=== PATIENT | female | born 1955 | race Hispanic/Latino ===

== ENCOUNTER → 2018-05-25 | Outpatient (CLI) | payer OTHER ==
[~2018-05-25] VITALS: Ht 157.5 cm; Wt 77.1 kg
[~2018-05-25] MED LIST: REGADENOSON 0.4 MG/5 ML PF SYG IVP SCH
== END ==
LOC: SHCH 08:27
PROVIDERS: ATTEND Internal Medicine Cardiovascular Disease
DX: I44.7 Left bundle-branch block, unspecified (principal)
CPT/HCPCS: 78452; 93017; 96374; A9500 ×2; J2785

== ENCOUNTER → 2018-11-12 | Outpatient (CLI) | payer MEDICARE | END | disposition home or self-care (01) | LOC: OIH 11-09 14:50 | PROVIDERS: ATTEND Internal Medicine | DX: M17.0 Bilateral primary osteoarthritis of knee (principal) | CPT/HCPCS: 73560 ==

== ENCOUNTER → 2020-05-08 | Outpatient (CLI) | payer MEDICARE, OTHER | END | disposition home or self-care (01) | LOC: OIH 15:17 | PROVIDERS: ATTEND Internal Medicine | DX: M17.11 Unilateral primary osteoarthritis, right knee (principal); M25.761 Osteophyte, right knee; M22.3X1 Other derangements of patella, right knee | CPT/HCPCS: 73560 ==

== ENCOUNTER → 2020-12-04 | Outpatient (CLI) | payer OTHER | END | disposition home or self-care (01) | LOC: RAH 15:29 | PROVIDERS: ATTEND Internal Medicine | DX: I10 Essential (primary) hypertension (principal) | CPT/HCPCS: 71046 ==

== ENCOUNTER → 2020-12-31 | Outpatient (CLI) | payer OTHER | END | disposition home or self-care (01) | LOC: RAH 10:39 | PROVIDERS: ATTEND Internal Medicine | DX: I70.201 Unspecified atherosclerosis of native arteries of extremities, right leg (principal); M79.89 Other specified soft tissue disorders; M25.561 Pain in right knee; Z96.659 Presence of unspecified artificial knee joint | CPT/HCPCS: 73560 ==

== ENCOUNTER 2022-10-31 18:41 | Emergency (ER) | payer OTHER ==
[~2022-10-31] VITALS: Ht 157.5 cm; Wt 83.0 kg
[2022-10-31 19:26] LABS: BASOPHILS % (AUTO) 0.7 % (0.0-5.0); EOSINOPHILS % (AUTO) 2.7 % (0.0-8.0); HEMATOCRIT 40.6 % (36-48); LYMPHOCYTES % (AUTO) 18.7 % (21.0-51.0); MEAN CORPUSCULAR HEMOGLOBIN 29.7 pg (27.0-33.0); MEAN CORPUSCULAR HGB CONC 32.8 g/dL (32.0-36.0); MEAN CORPUSCULAR VOLUME 90.6 fL (79-99); MONOCYTES % (AUTO) 7.4 % (3.0-13.0); NEUTROPHILS % (AUTO) 69.8 % (40.0-77.0); PLATELET COUNT (AUTO) 171 K/uL (130-400); RED BLOOD CELL COUNT(AUTO) 4.48 MIL/uL (4.00-5.50); RED CELL DISTRIBUTION WIDTH 14.2 % (11.0-15.5); WHITE BLOOD COUNT (AUTO) 7.2 K/uL (4.8-10.8)
[2022-10-31 19:35] LABS: CREATININE 1.1 mg/dL (0.5-1.5); POTASSIUM 5.2 mmol/L (3.5-5.1)
[2022-10-31 19:40] LABS: ALBUMIN 3.3 g/dL (3.5-5.0); TOTAL PROTEIN, SERUM 7.2 g/dL (6.0-8.3)
[2022-10-31 19:44] LABS: INR 0.93 (0.85-1.15); PROTHROMBIN TIME 9.7 SEC (9.6-11.6)
[2022-10-31 19:46] LABS: PARTIAL THROMBOPLASTIN TIME 20.6 SEC (26.3-35.5)
[2022-10-31 20:09] LABS: APPEARANCE,URINE CLOUDY (CLEAR); BILIRUBIN,URINE NEGATIVE (NEGATIVE); COLOR,URINE LIGHT-YELLOW (YELLOW); GLUCOSE, URINE (UA) >=1000 mg/dL (NEGATIVE); KETONES,URINE NEGATIVE (NEGATIVE); LEUKOCYTE ESTERASE ,URINE NEGATIVE Leu/uL (NEGATIVE); NITRATE,URINE 1+ (NEGATIVE); OCCULT BLOOD,URINE NEGATIVE (NEGATIVE); PH,URINE 5.5 (5.0-8.0); PROTEIN,URINE 70 mg/dL (NEGATIVE); UROBILINOGEN,URINE 0.2 mg/dL (0.2-1.0)
[2022-10-31 20:13] LABS: BACTERIA,URINE RARE /HPF (None Seen); MUCUS,URINE RARE LPF (None Seen); SQUAMOUS EPITHELIAL CELL,UR RARE /HPF (0-2)
[2022-10-31 22:04] VITALS: BP 137/71
== END 2022-10-31 22:19 | disposition home or self-care (01) ==
LOC: EDH 18:41
DX: R47.81 Slurred speech (principal); E11.9 Type 2 diabetes mellitus without complications; E78.00 Pure hypercholesterolemia, unspecified; I10 Essential (primary) hypertension; Z88.2 Allergy status to sulfonamides
CPT/HCPCS: 36415; 70450; 80053; 81001; 82948; 85025; 85610; 85730; 87077; 87088; 87186

== ENCOUNTER → 2024-08-04 | Outpatient (CLI) | payer OTHER ==
[~2024-08-04] MED LIST changes: +LIDOCAINE HCL 4% LTA SOL 4 ML VIAL TP ONE; -REGADENOSON 0.4 MG/5 ML PF SYG IVP SCH
== END | disposition home or self-care (01) ==
LOC: WHH 08:52
PROVIDERS: ATTEND Family Medicine
DX: T81.31XD Disruption of external operation (surgical) wound, not elsewhere classified, subsequent encounter (principal); E11.9 Type 2 diabetes mellitus without complications; I11.0 Hypertensive heart disease with heart failure; I50.9 Heart failure, unspecified; I25.10 Atherosclerotic heart disease of native coronary artery without angina pectoris; Z87.891 Personal history of nicotine dependence; Z90.710 Acquired absence of both cervix and uterus; Z95.5 Presence of coronary angioplasty implant and graft; Y83.8 Other surgical procedures as the cause of abnormal reaction of the patient, or of later complication, without mention of misadventure at the time of the procedure
CPT/HCPCS: 11042

== ENCOUNTER → 2024-08-25 | Outpatient (CLI) | payer OTHER | END | disposition home or self-care (01) | LOC: WHH 09:02 | PROVIDERS: ATTEND Family Medicine | DX: T81.31XD Disruption of external operation (surgical) wound, not elsewhere classified, subsequent encounter (principal); I87.313 Chronic venous hypertension (idiopathic) with ulcer of bilateral lower extremity; E11.622 Type 2 diabetes mellitus with other skin ulcer; L97.822 Non-pressure chronic ulcer of other part of left lower leg with fat layer exposed; L97.812 Non-pressure chronic ulcer of other part of right lower leg with fat layer exposed; L97.122 Non-pressure chronic ulcer of left thigh with fat layer exposed; I11.0 Hypertensive heart disease with heart failure; I50.9 Heart failure, unspecified; I25.10 Atherosclerotic heart disease of native coronary artery without angina pectoris; Z87.891 Personal history of nicotine dependence; Z95.1 Presence of aortocoronary bypass graft; Z90.710 Acquired absence of both cervix and uterus; Y83.8 Other surgical procedures as the cause of abnormal reaction of the patient, or of later complication, without mention of misadventure at the time of the procedure | CPT/HCPCS: 11042; A6212 ==

== ENCOUNTER → 2024-09-22 | Outpatient (CLI) | payer OTHER | END | disposition home or self-care (01) | LOC: WHH 09:22 | PROVIDERS: ATTEND Family Medicine | DX: T81.31XD Disruption of external operation (surgical) wound, not elsewhere classified, subsequent encounter (principal); I87.313 Chronic venous hypertension (idiopathic) with ulcer of bilateral lower extremity; E11.622 Type 2 diabetes mellitus with other skin ulcer; L97.822 Non-pressure chronic ulcer of other part of left lower leg with fat layer exposed; L97.812 Non-pressure chronic ulcer of other part of right lower leg with fat layer exposed; L97.122 Non-pressure chronic ulcer of left thigh with fat layer exposed; I11.0 Hypertensive heart disease with heart failure; I50.9 Heart failure, unspecified; I25.10 Atherosclerotic heart disease of native coronary artery without angina pectoris; Z87.891 Personal history of nicotine dependence; Z95.1 Presence of aortocoronary bypass graft; Z90.710 Acquired absence of both cervix and uterus; Y83.8 Other surgical procedures as the cause of abnormal reaction of the patient, or of later complication, without mention of misadventure at the time of the procedure | CPT/HCPCS: G0463; A4450 ==

== ENCOUNTER → 2024-10-20 | Outpatient (CLI) | payer OTHER ==
--- NOTE | 2024-10-20 15:00 | HMCIMG ---
Exam Type: CT HEAD/BRAIN W/O CONTRAST Clinical Information: Unspecified injury of head, initial encounter Comparison: None CT Dose Index (CTDI): 57.33 mGy Dose Length Product (DLP): 956.79 total mGy-cm Findings: There is low attenuation throughout the periventricular white matter locations, consistent with chronic small vessel ischemic changes. No acute intra- or extra-axial fluid collections are seen. There is no evidence of acute or chronic hemorrhage. There is no mass effect or shift of midline structures. There are no areas to suggest acute infarct. The skull windows show no significant abnormalities. IMPRESSION: 1. CHRONIC SMALL VESSEL ISCHEMIC CHANGES.
== END | disposition home or self-care (01) ==
LOC: RAH 14:03
PROVIDERS: ATTEND Internal Medicine
DX: S09.90XA Unspecified injury of head, initial encounter (principal); I73.9 Peripheral vascular disease, unspecified; I82.409 Acute embolism and thrombosis of unspecified deep veins of unspecified lower extremity; I67.82 Cerebral ischemia; X58.XXXA Exposure to other specified factors, initial encounter; Y93.89 Activity, other specified; Y92.89 Other specified places as the place of occurrence of the external cause; Y99.8 Other external cause status
CPT/HCPCS: 70450

== ENCOUNTER 2025-02-14 09:50 | Observation (INO) | payer OTHER ==
[~2025-02-14] VITALS: Ht 157.5 cm; Wt 74.8 kg
[2025-02-14 10:21] LABS: BASOPHILS # (AUTO) 0.05 K/uL (0.00-0.20); BASOPHILS % (AUTO) 0.7 % (0.0-5.0); EOSINOPHILS # (AUTO) 0.03 K/uL (0.00-0.70); EOSINOPHILS % (AUTO) 0.4 % (0.0-8.0); HEMATOCRIT 43.5 % (36-48); IMMATURE GRANULOCYTE ABSOLUTE 0.05 K/uL (0-1); LYMPHOCYTES # (AUTO) 0.9 K/uL (1.0-4.8); LYMPHOCYTES % (AUTO) 12.3 % (21.0-51.0); MEAN CORPUSCULAR HEMOGLOBIN 28.7 pg (27.0-33.0); MEAN CORPUSCULAR HGB CONC 32.2 g/dL (32.0-36.0); MEAN CORPUSCULAR VOLUME 89.1 fL (79-99); MONOCYTES # (AUTO) 0.5 K/uL (0.1-1.0); MONOCYTES % (AUTO) 6.6 % (3.0-13.0); NEUTROPHILS # (AUTO) 5.9 K/uL (1.8-7.7); NEUTROPHILS % (AUTO) 79.3 % (40.0-77.0); PLATELET COUNT (AUTO) 266 K/uL (130-400); RED BLOOD CELL COUNT(AUTO) 4.88 MIL/uL (4.00-5.50); RED CELL DISTRIBUTION WIDTH 13.7 % (11.0-15.5); WHITE BLOOD COUNT (AUTO) 7.5 K/uL (4.8-10.8)
--- NOTE | 2025-02-14 10:29 | HMCIMG ---
Exam: AP pelvis and both hips 2 views Reason: Trauma. FINDINGS: AP pelvis shows normal findings. There are no fractures. Hip joint space appears preserved. Proximal femurs appear unremarkable and frog-leg lateral view. IMPRESSION: 1. Normal views of the pelvis and both hips.
[2025-02-14 10:30] LABS: CREATININE 0.7 mg/dL (0.5-1.0); POTASSIUM 4.4 mmol/L (3.5-5.1)
--- NOTE | 2025-02-14 10:57 | ERN ---
General Chief Complaint: Mechanical Fall Stated Complaint: FALL Time Seen by MD: 09:52 Source: patient History of Present Illness Initial Comments Patient is a 69-year-old female coming in complaining of right hip pain. Patient states that he has been having spasms in the right hip which caused her to fall. Patient also states that she has been on the ground from 11-7 o'clock in the morning until EMS came for her. Allergies: Coded Allergies: Sulfa (Sulfonamide Antibiotics) (Unverified Allergy, Unknown, 05/24/18) Past Medical History Past Medical History: Diabetes-Type II, High Cholesterol, Hypertension Medical History Other: HERNIATED DISCS Past Surgical History: Cholecystectomy, Family History Family History: HTN ROS Dictation CONSTITUTIONAL: No chills, no fever, no weakness, no diaphoresis, no malaise. HEAD/FACE: No signs of trauma. EENT: No eye pain, no blurred vision, no tearing, no double vision, no ear pain, no ear discharge, no nose pain, no nasal congestion, no throat pain, no throat swelling, no mouth pain. RESPIRATORY: No cough, no orthopnea, no SOB, no stridor, no wheezing. CARDIOVASCULAR: No chest pain, no edema, no palpitations, no syncope. GASTROINTESTINAL/ABDOMINAL: No abdominal pain, no constipation, no diarrhea, no nausea, no vomiting. GENITOURINARY: No abnormal discharge, no dysuria, no frequent urination, no hematuria. No complaints of pain in the genitals. MUSCULOSKELETAL: No back pain, no gout, joint pain, no joint swelling, muscle pain, muscle stiffness, no neck pain. INTEGUMENTARY: No change in color, no change in hair/nails, no dryness, no les ion, no lumps, no rash. NEUROLOGICAL/PSYCH: No anxiety, not depressed, no emotional problem, no headache, no numbness, no pre-existing deficit, no history of seizures, no tremors, no weakness. HEMATOLOGIC/LYMPHATIC: Not anemic, no history of blood clots, no apparent bleeding, no bruising, glands not swollen. All Systems Negative, Except as Noted. Results Laboratory and Microbiology Lab and Micro Result Laboratory Tests Test 02/14/25 10:12 White Blood Count 7.5 K/uL (4.8-10.8) Red Blood Count 4.88 MIL/uL (4.00-5.50) Hemoglobin 14.0 g/dL (12.0-16.0) Hematocrit 43.5 % (36-48) Mean Corpuscular Volume 89.1 fL (79-99) Mean Corpuscular Hemoglobin 28.7 pg (27.0-33.0) Mean Corpuscular Hemoglobin Concent 32.2 g/dL (32.0-36.0) Red Cell Distribution Width 13.7 % (11.0-15.5) Platelet Count 266 K/uL (130-400) Mean Platelet Volume 11.0 fL (7.5-10.5) H Immature Granulocyte % (Auto) 0.7 % (0-1) Neutrophils (%) (Auto) 79.3 % (40.0-77.0) H Lymphocytes (%) (Auto) 12.3 % (21.0-51.0) L Monocytes (%) (Auto) 6.6 % (3.0-13.0) Eosinophils (%) (Auto) 0.4 % (0.0-8.0) Basophils (%) (Auto) 0.7 % (0.0-5.0) Neutrophils # (Auto) 5.9 K/uL (1.8-7.7) Lymphocytes # (Auto) 0.9 K/uL (1.0-4.8) L Monocytes # (Auto) 0.5 K/uL (0.1-1.0) Eosinophils # (Auto) 0.03 K/uL (0.00-0.70) Basophils # (Auto) 0.05 K/uL (0.00-0.20) Absolute Immature Granulocyte (auto 0.05 K/uL (0-1) Nucleated Red Blood Cells 0.0 % (0.0-0.19) Sodium Level 134 mmol/L (136-145) L Potassium Level 4.4 mmol/L (3.5-5.1) Chloride Level 102 mmol/L (101-111) Carbon Dioxide Level 25 mmol/L (21-32) Blood Urea Nitrogen 15 mg/dL (7-18) Creatinine 0.7 mg/dL (0.5-1.0) Glomerular Filtration Rate Calc 94 mL/min (>90) Random Glucose 302 mg/dL (70-105) H Total Calcium 8.9 mg/dL (8.5-10.1) Total Creatine Kinase 87 U/L (21-232) # Labs Reviewed?: Yes EKG/XRAY/US/CT/MRI X-RAY Comment [facility] [address] [place] [address] IMAGING REPORT Signed PATIENT: DAWSON LOUISE MR#: [id number] : 1955 SEX: F AGE: 69 LOCATION: [facility] ORDER 7 STATUS: REG ER REPORT#: [id number] SERVICE 7 REASON: fall ORDERING PHYSICIAN: AMINATA REECE MD PROCEDURE: HIPS B 3V - HIP BILAT 3-4VW Exam: AP pelvis and both hips 2 views Reason: Trauma. FINDINGS: AP pelvis shows normal findings. There are no fractures. Hip joint space appears preserved. Proximal femurs appear unremarkable and frog-leg lateral view. IMPRESSION: 1. Normal views of the pelvis and both hips. DICTATED BY: TWAN HINES MD DATE: 02/14/251024 ELECTRONICALLY SIGNED BY: TWAN HINES MD DATE: 02/14/25 1029 [facility] MDM: Differential diagnosis: Right-sided sciatica, generalized body weakness, intractable pain, Rationale: Tests considered and ordered secondary to shared decision making include: labs, ECG and radiology Previous outside records reviewed: Old ER visits. Risk of complication and/or morbidity or mortality of patient management: None Medications-Per medication reconciliation Need for hospitalization: Patient does meet criteria for hospitalization. Need for emergency major/minor surgery: No There are no social concerns with this patient. Prescription drug management Prescriptions will include symptomatic care Patient's prior external medical records from other ER visits were reviewed by me as indicated. Prior testing and results from previous visits were reviewed. Prior tests were taken into account with medical decision making and resource utilization, independent historian/historians were used to obtain complete medical history. I independently interpreted the test that were performed, results were reviewed by me and considered findings on radiology if ordered. Medical management and examination interpretation discussions were had by me with other qualified healthcare professionals as indicated for the patient's care. Patient is a 69-year-old female coming in to be evaluated for right-sided sciatica. Patient states he was found the for states that she was not able to ambulate. Patient will be admitted under the care of Dr. Simpson. ED Course Orders Procedure Category Date Status Time Cbc With Differential LAB 02/14/25 Complete 09:58 Basic Metabolic Panel LAB 02/14/25 Complete 09:58 Creatine Kinase, Total LAB 02/14/25 Complete 09:58 Hip Bilat 3-4vw RAD 02/14/25 Resulted 09:58 Ketorolac PHA 02/14/25 Complete Tromethamine 30mg/Ml 11:00 Current Medications Medications (Trade) Dose Ordered Sig/Redd Route PRN Reason Start Time Stop Time Status Last Admin Dose Admin Ketorolac Tromethamine (toRADol) 30 mg ONCE ONCE IVP 02/14/25 11:00 02/14/25 11:03 DC Vital Signs Date Time Temp Pulse Resp B/P (MAP) Pulse Ox O2 Delivery O2 Flow Rate FiO2 02/14/25 09:59 98.2 89 18 158/58 97 Room Air* 0 21 02/14/25 09:53 98.2 86 16 158/58 100 Room Air 0 DX & DISP Disposition: Inpatient Decision to Admit Time: 11:18 Departure Impression: Primary Impression: Right sided sciatica Additional Impression: Failure to thrive Condition: Stable Referrals: LAMONTE TRUJILLO MD (PCP) AMINATA REECE MD Feb 14, 2025 10:57
--- NOTE | 2025-02-14 11:05 | NUR ---
DARLINE HOOKS DAUGHTER [phone]
[2025-02-14] MEDS: DEXTROSE 5 %-0.45 % NACL 1,000 ML IV SCH (12:28)
[2025-02-14] MEDS: ketOROlac 30MG VIAL (30MG/ML) IVP ONE (12:29)
--- NOTE | 2025-02-14 15:12 | NUR ---
DCP: HOME Pt currently lives alone in her home. Pt does not have any insecurities with food, snf, and/or utilities. Pt uses a cane and walker at home to ambulate. Pt does not have a provider at this time. Pt does have a nurse that goes to her home daily for wound care. PCP is Ankita Solorio and uses [facility] for any RX needs. At [place] pt will return home and family can assist with transportation. Addendum: 02/14/25 at 1515 by LOW BAUTISTA SS Amended: Links added.
[2025-02-14 16:16] LABS: ADD UA MICROSCOPIC YES; APPEARANCE,URINE CLOUDY (CLEAR); BILIRUBIN,URINE NEGATIVE (NEGATIVE); COLOR,URINE LIGHT-YELLOW (YELLOW); GLUCOSE, URINE (UA) >=1000 mg/dL (NEGATIVE); KETONES,URINE NEGATIVE (NEGATIVE); LEUKOCYTE ESTERASE ,URINE NEGATIVE Leu/uL (NEGATIVE); NITRATE,URINE NEGATIVE (NEGATIVE); PROTEIN,URINE 200 mg/dL (NEGATIVE); UROBILINOGEN,URINE 0.2 mg/dL (0.2-1.0)
[2025-02-14 16:23] LABS: BACTERIA,URINE MANY /HPF (None Seen); MUCUS,URINE RARE LPF (None Seen); SQUAMOUS EPITHELIAL CELL,UR RARE /HPF (0-2)
--- NOTE | 2025-02-14 18:34 | NUR ---
PT ABLE TO AMBULATE W/ NO ASSISTANCE
--- NOTE | 2025-02-14 22:58 | NUR ---
REPORT GIVEN TO KRISTIE SHOEMAKER
[2025-02-14 23:20] VITALS: BP 168/74; PULSE 74; RESP 20; TEMP 99.1
[2025-02-14 23:30] VITALS: O2SAT 93
[2025-02-14] MEDS: acetaMINOPHEN 325 MG TAB PO PRN (23:45)
[2025-02-15] VITALS (8 sets, daily range): BP systolic 124–145; BP diastolic 54–85; PULSE 69–79; RESP 17–20; TEMP 98.3–99.7; O2SAT 95
[2025-02-15] MEDS ORDERED: GLIM4TAB36 PO (01:25)
[2025-02-15] MEDS ORDERED: MAGN400C PO (01:25)
[2025-02-15] MEDS ORDERED: METF-446 PO (01:25)
[2025-02-15] MEDS ORDERED: HYDR-4068 PO (01:25)
[2025-02-15] MEDS ORDERED: FLUC200T96 PO (01:25)
[2025-02-15] MEDS ORDERED: ATOR40TA71 PO (01:25)
[2025-02-15] MEDS ORDERED: MELO-106 PO (01:25)
[2025-02-15] MEDS ORDERED: LISI10TA24 PO (01:25)
[2025-02-15] MEDS ORDERED: EMPA25TA PO (01:25)
[2025-02-15] MEDS ORDERED: METO25 PO (01:25)
--- NOTE | 2025-02-15 03:00 | NUR ---
meds taken to pharmacy. patient aware.
--- NOTE | 2025-02-15 03:30 | NUR ---
received patient at 2320. she is AOX4, Complains of "pinched nerve" to her back to which she explains how she fell at home. she has carpet burn blisters to bilateral elbows and a healing wound to her left bowen and a healing ulcer to her left great toe. photos taken on wound care ipad and wounds have been cleansed with NS and bandaged with kerlix and tape. home meds entered and resumed per dr ibrahim's order. 2x bed rails, bed is low, call light in reach and bed alarm is on. patient advised to call when she needs to get up. plan of care ongoing.
[2025-02-15] MEDS ORDERED: FLUCONAZOLE PO SCH (09:00)
[2025-02-15] MEDS ORDERED: HYDROcodone/acetaMINOPHEN 10/325 MG TAB PO PRN (09:00)
[2025-02-15] MEDS: metFORmin HCL 500 MG TABLET PO SCH (10:07)
[2025-02-15] MEDS: MAGNESIUM OXIDE 400 MG TABLET PO SCH (10:07)
[2025-02-15] MEDS: GLIMEPIRIDE 2 MG TABLET PO SCH (10:07)
[2025-02-15] MEDS: metoPROLOL tartRATE 25 MG TAB PO SCH (10:07)
[2025-02-15] MEDS: MELOXICAM 7.5 MG TABLET PO SCH (10:07)
[2025-02-15] MEDS: 1/2 NS 1000ML 1,000 ML IV SCH (10:08)
[2025-02-15] MEDS: EMPAGLIFLOZIN 25MG TABLET PO SCH (10:08)
[2025-02-15] MEDS: LISINOPRIL 10 MG TABLET PO SCH (10:08)
[2025-02-15] MEDS: INSULIN humuLIN R 100 UNIT/ML 3ML SQ SCH (12:39)
--- NOTE | 2025-02-15 13:58 | NUR ---
[facility] Consult: Patient assessed by wound healing team. See wound assessment. Assessment and recommendations provided to primary nurse. Education provided. Addendum: 02/17/25 at [address] RN RN/ Amended: Links added.
--- NOTE | 2025-02-15 17:04 | HMCIMG ---
MR SPINAL CANAL, LUMBAR WO CON REASON: lower extremity weakness, s/p fall at home COMPARISON: None TECHNIQUE: Routine lumbar imaging protocol was performed. Exam was performed without IV contrast. FINDINGS: There are normal-appearing lumbar vertebral bodies. Interspace heights appear preserved. There are annular bulges at multiple levels. There are also moderate to marked ligamentum flavum and facet hypertrophic changes. These findings result in severe spinal stenosis at L4-5, AP diameter is between 4 and 5 mm in the midline, narrowing more pronounced in the lateral recesses. In addition there is a small synovial cyst extending medially from the left L5-S1 facet, into the lateral recess, this measures 3 mm. There is also severe spinal stenosis at L3-4, AP diameter between 4 and 5 mm, narrowing more pronounced in the lateral recesses. Remaining interspaces are well preserved. There is neural foraminal narrowing bilaterally at L4-5 and L5-S1, the right foramen at L3-4 appears narrowed as well. IMPRESSION: 1. Degenerative change resulting in severe spinal stenosis L4-5 and L5-S1. 2. Small synovial cyst visible on the left at the L4-5 facet. 3. Foraminal narrowing as described.
[2025-02-15] MEDS ORDERED: cefTRIAXone 1G VIAL IVPB SCH (18:00)
[2025-02-15] MEDS: cefTRIAXone 1G VIAL IVPB SCH (18:47)
--- NOTE | 2025-02-15 21:58 | PN ---
PROGRESS NOTE PROGRESS NOTE DATE OF PROGRESS NOTE: 02/15/25 SUBJECTIVE: Still has severe low back pain VITAL SIGNS Vital Signs Date Time Temp Pulse Resp B/P (MAP) Pulse Ox O2 Delivery O2 Flow Rate FiO2 02/15/25 20:00 98.8 77 20 137/64 95 Room Air 02/15/25 08:00 0 21 PHYSICAL EXAM: HEENT atraumatic normocephalic head Neck is supple Lungs are clear to auscultation percussion Heart was S1-S2 heard Abdomen is soft and benign Extremities no pedal edema Significant tenderness in the low lumbar region noted Leg weakness noted LABORATORY: Laboratory Result(s) Test 02/15/25 05:43 02/15/25 10:58 02/15/25 15:56 02/15/25 19:38 Whole Blood Glucose 280 MG/DL (70-110) 370 MG/DL (70-110) 248 MG/DL (70-110) 253 MG/DL (70-110) Bedside Glucose Comment Notified Nurse Notified Nurse INPATIENT MEDS: Current Medications Medications Dose Ordered Sig/Redd Start Time Stop Time Status Last Admin Acetaminophen 650 mg Q6H PRN 02/14/25 11:30 03/16/25 11:29 02/14/25 23:45 Atorvastatin Calcium 40 mg HS 02/15/25 21:00 03/17/25 20:59 Empaglifozin 25 mg DAILY 02/15/25 09:00 03/17/25 08:59 02/15/25 10:08 Acetaminophen/ Hydrocodone Bitart 1 tab QID PRN 02/15/25 09:00 02/22/25 08:59 Lisinopril 10 mg DAILY 02/15/25 09:00 03/17/25 08:59 02/15/25 10:08 Meloxicam 7.5 mg DAILY 02/15/25 09:00 03/17/25 08:59 02/15/25 10:07 Metoprolol Tartrate 25 mg BID 02/15/25 09:00 03/17/25 08:59 02/15/25 10:07 Glimepiride 4 mg BID 02/15/25 09:00 03/17/25 08:59 02/15/25 10:07 Magnesium Oxide 400 mg DAILY 02/15/25 09:00 03/17/25 08:59 02/15/25 10:07 Metformin HCl 1,000 mg BIDMEALS 02/15/25 08:00 03/17/25 07:59 02/15/25 17:25 Sodium Chloride 1,000 ml @ 50 mls/hr Q20H 02/15/25 08:30 03/17/25 08:29 02/15/25 10:08 Insulin Human Regular INSULIN SLIDING SCAL... ACHS 02/15/25 11:30 03/17/25 11:29 02/15/25 17:27 Ceftriaxone Sodium 1 gm Q24H 02/15/25 19:00 02/25/25 18:59 02/15/25 18:47 PROBLEM LIST: (1) Right sided sciatica ICD Code: M54.31 - Sciatica, right side PLAN: With leg weakness and gait instability admit follow up with MRI LAMONTE TRUJILLO MD Feb 15, 2025 21:58
[2025-02-15] MEDS: atorVAStatin 40 MG TABLET PO SCH (22:50)
[2025-02-16] VITALS: BP 160/66; PULSE 86; RESP 18; TEMP 98.6
[2025-02-16 04:00] VITALS: BP 126/59; PULSE 75; RESP 16; TEMP 98.4
--- NOTE | 2025-02-16 06:21 | PN ---
SUBJECTIVE: The patient is a very pleasant 69-year-old diabetic, Latin-[place] female who is followed up for a great toe ulcer to her foot, for which she is being followed by Dr. Sykler Brumfield as an outpatient. She is a patient of Dr. Solorio. She was admitted with a fall due to hip pain. She has had an MRI of her low back showed L4, L5, L5-S1 spinal stenosis, degenerative changes, foraminal narrowing. The patient has been receiving Medihoney dressings to her great toe ulcer. T-max 98.6, pulse 86, respirations 18, blood pressure 160/66. White count 7.5, H and H 14 and 43, neutrophils 79.3. BUN and creatinine level 15 and 0.7. REVIEW OF SYSTEMS: CONSTITUTIONAL: No chills, no fevers, no night sweats. No nausea, vomiting, no diarrhea. PSYCHIATRIC: Denied any depression. GENITOURINARY: No dysuria. GASTROINTESTINAL: No dysphagia. ENDOCRINE: Diabetes. INTEGUMENT: She has a superficial ulcer to the tip of the great toe that is measuring 3 x 2 x 1 mm. No odor, no pus, no necrosis, no cellulitis, no clinical signs of infection. ASSESSMENT: Clean, granular ulcer to the great toe. Appears to be healing well. No signs of infection. PLAN: We will continue with Medihoney dressings, offloading measures with surgical shoes. Continue to follow the patient closely while in-house. She is currently receiving IV ceftriaxone. TID: [id number] RECEIPT: [id number]
[2025-02-16 08:00] VITALS: BP 127/48; PULSE 80; RESP 16; TEMP 98; O2SAT 96
--- NOTE | 2025-02-16 08:31 | CONS ---
HISTORY OF PRESENT ILLNESS: The patient is a very pleasant 69-year-old diabetic, Latin-Romanian female who is a patient of Dr. Skyler Brumfield in [place]. She has been following her up for an ulcer to the distal aspect of her left great toe. The patient has been afebrile at 98.8, blood pressure 145/85, pulse 76, respirations 18. White count 7.5, H and H 14 and 43.5, neutrophils 79.3, glucose 248. Lumbar spine MRI, degenerative changes resulting in severe spinal stenosis at L4-5 and L5-S1, foraminal narrowing. Hip and pelvis x-rays negative. The patient was admitted to the hospital after a fall due to right hip pain. She was apparently on the floor from 11 p.m. to 7 a.m. In the morning until EMS was able to come and bring her to the hospital. ALLERGIES: SHE IS ALLERGIC TO SULFA. PAST MEDICAL HISTORY: Diabetes, high cholesterol, hypertension, herniated disks. PAST SURGICAL HISTORY: Cholecystectomy and . FAMILY HISTORY: Hypertension. MEDICATIONS: The patient is currently receiving ceftriaxone, metformin, acetaminophen, Jardiance, hydrocodone, lisinopril, meloxicam, metoprolol, regular insulin, atorvastatin. REVIEW OF SYSTEMS: CONSTITUTIONAL: Pain to the hip on the right. HEENT: No problems with her eyes, ears, nose, or throat. CARDIOVASCULAR: Having no current chest pain. RESPIRATORY: No shortness of breath. GENITOURINARY: No dysuria. GASTROINTESTINAL: No dysphagia. ENDOCRINE: Diabetes. PSYCHIATRIC: Denied any depression. MUSCULOSKELETAL: Bunions and hammertoe deformities. INTEGUMENT: Ulceration to the distal aspect of her left great toe, also measuring 4 x 3 x 1 mm. No abscess or ascending cellulitis. No drainage to culture. PHYSICAL EXAMINATION: EXTREMITIES: Her examination today shows she has palpable anterior tibial pulse. I could not palpate her posterior tibial pulse. The feet are warm. Elongated, thickened, brittle, gryphotic toenails x 10 with subungual debris. Ulceration to the distal aspect of the left great toe 3 x 4 x 1 mm, surrounding hyperkeratosis. Reflexes diminished. Muscle strength is intact. Good pedal and ankle joint range of motion. LABORATORY DATA: White count 7.5, H and H 14 and 43. ASSESSMENT: Diabetes, peripheral neuropathy, onychomycosis, onychogryphosis, superficial ulcer to left great toe nearly healed per the patient, bunions and hammertoe deformities. PLAN: Today, I debrided her toenails extensively, reducing the length and girth to pink healthy tissue and removed subungual debris x 10 with a nail clipper and dermal curette without incident. the patient use Lotrimin solution topically to her nails daily. I trimmed the callus to the surrounding ulcer of the left great toe with a #15 scalpel blade x 1 without incidence. I applied Medihoney dressings to the ulcer site of the left great toe. I will order the patient surgical shoes, for which to ambulate with when she is discharged. She can follow back with Dr. Brumfield at the office for treatment of the ulcers, superficial, clean and granular and nearly healed to the distal aspect of the left great toe. There are no clinical signs of infection present. TID: [id number] RECEIPT: [id number]
[2025-02-16 12:00] VITALS: BP 162/99; PULSE 65; RESP 18; TEMP 98.5
--- NOTE | 2025-02-16 13:56 | PN ---
PROGRESS NOTE PROGRESS NOTE DATE OF PROGRESS NOTE: 02/16/25 SUBJECTIVE: no new complaints improved back pain VITAL SIGNS Vital Signs Date Time Temp Pulse Resp B/P (MAP) Pulse Ox O2 Delivery O2 Flow Rate FiO2 02/16/25 12:00 98.4 65 18 162/99 97 Room Air 21 02/16/25 08:00 0 PHYSICAL EXAM: HEENT atraumatic normocephalic head Neck is supple Lungs are clear to auscultation percussion Heart was S1-S2 heard Abdomen is soft and benign Extremities no pedal edema Significant tenderness in the low lumbar region noted Leg weakness noted LABORATORY: Laboratory Result(s) Test 02/15/25 15:56 02/15/25 19:38 02/16/25 05:25 02/16/25 11:49 Whole Blood Glucose 248 MG/DL (70-110) 253 MG/DL (70-110) 148 MG/DL (70-110) 282 MG/DL (70-110) Bedside Glucose Comment Notified Nurse INPATIENT MEDS: Current Medications Medications Dose Ordered Sig/Redd Start Time Stop Time Status Last Admin Acetaminophen 650 mg Q6H PRN 02/14/25 11:30 03/16/25 11:29 02/16/25 01:58 Atorvastatin Calcium 40 mg HS 02/15/25 21:00 03/17/25 20:59 02/15/25 22:50 Empaglifozin 25 mg DAILY 02/15/25 09:00 03/17/25 08:59 02/16/25 08:34 Acetaminophen/ Hydrocodone Bitart 1 tab QID PRN 02/15/25 09:00 02/22/25 08:59 Lisinopril 10 mg DAILY 02/15/25 09:00 03/17/25 08:59 02/15/25 10:08 Meloxicam 7.5 mg DAILY 02/15/25 09:00 03/17/25 08:59 02/16/25 08:34 Metoprolol Tartrate 25 mg BID 02/15/25 09:00 03/17/25 08:59 02/16/25 08:34 Glimepiride 4 mg BID 02/15/25 09:00 03/17/25 08:59 02/16/25 08:34 Magnesium Oxide 400 mg DAILY 02/15/25 09:00 03/17/25 08:59 02/16/25 08:34 Metformin HCl 1,000 mg BIDMEALS 02/15/25 08:00 03/17/25 07:59 02/16/25 08:34 Sodium Chloride 1,000 ml @ 50 mls/hr Q20H 02/15/25 08:30 03/17/25 08:29 02/16/25 08:33 Insulin Human Regular INSULIN SLIDING SCAL... ACHS 02/15/25 11:30 03/17/25 11:29 02/16/25 12:39 Ceftriaxone Sodium 1 gm Q24H 02/15/25 19:00 02/25/25 18:59 02/15/25 18:47 PROBLEM LIST: (1) Right sided sciatica ICD Code: M54.31 - Sciatica, right side PLAN: With leg weakness and gait instability admit follow up with MRI LAMONTE TRUJILLO MD Feb 16, 2025 13:56
--- NOTE | 2025-02-16 14:45 | NUR ---
Pt ambulates enriquez [place] with 2ww. Pt is set to DC home. No further PT needs at this time.
[2025-02-16 16:00] VITALS: BP 142/69; PULSE 70; RESP 18; TEMP 98.4
--- NOTE | 2025-02-17 23:02 | DS ---
Discharge Summary DIAGNOSE(S): [Gait instability with leg weakness secondary to spinal stenosis] HOSPITAL COURSE SUMMARY: [Patient presented with fall and was observed and progress with physical therapy as she tolerated severe spinal stenosis noted which will be followed up with Neurosurgery as an outpatient] WATER RESTORATION TECHNICIAN(S): [] PROCEDURE(S)/TREATMENT(S): [MRI of the lumbar spine] PROBLEM(S): [] FOLLOW-UP TEST(S): [None] DISCHARGE INSTRUCTIONS: [Follow up with PCP in 1-2 days] Home Meds Reported Medications Magnesium Oxide (Magnesium) 400 Mg Magnesium Capsule, 1 TAB PO DAILY for 30 Days, #30 CAP 0 Refills 02/15/25 Empagliflozin (Jardiance) 25 Mg Tablet, 1 TAB PO DAILY for 30 Days, #30 TAB 0 Refills 02/15/25 Metformin HCl (Metformin HCl) 1,000 Mg Tablet, 1 TAB PO BID 02/15/25 Glimepiride (Glimepiride) 4 Mg Tablet, 1 TAB PO BID 02/15/25 Atorvastatin Calcium (Atorvastatin Calcium) 40 Mg Tablet, 1 TAB PO HS 02/15/25 Metoprolol Tartrate (Lopressor) 25 Mg Tab, 1 TAB PO BID 02/15/25 Lisinopril (Lisinopril) 10 Mg Tablet, 1 TAB PO DAILY 02/15/25 Hydrocodone/Acetaminophen (Hydrocodon-Acetaminophn 10-325) 10 Mg-325 Mg Tablet, 1 TAB PO QID 02/15/25 Fluconazole (Fluconazole) 200 Mg Tablet, 1 TAB PO DAILY for 10 Days, #10 TAB 0 Refills 02/15/25 Meloxicam (Meloxicam) 7.5 Mg Tablet, 7.5 MG PO DAILY, TAB 02/15/25 LAMONTE TRUJILLO MD Feb 17, 2025 23:02
== END 2025-02-16 18:55 | disposition home or self-care (01) ==
LOC: EDH 09:50 → EDHIP 09:51 → 3BH 23:02
PROVIDERS: ADMIT Internal Medicine; ATTEND Internal Medicine
DX: M48.07 Spinal stenosis, lumbosacral region (principal); M54.31 Sciatica, right side; R26.89 Other abnormalities of gait and mobility; R62.7 Adult failure to thrive; E78.00 Pure hypercholesterolemia, unspecified; I10 Essential (primary) hypertension; E11.621 Type 2 diabetes mellitus with foot ulcer; L97.529 Non-pressure chronic ulcer of other part of left foot with unspecified severity; E11.42 Type 2 diabetes mellitus with diabetic polyneuropathy; Z79.899 Other long term (current) drug therapy; Z79.84 Long term (current) use of oral hypoglycemic drugs; Z90.49 Acquired absence of other specified parts of digestive tract; Z88.2 Allergy status to sulfonamides; W19.XXXA Unspecified fall, initial encounter; Y93.89 Activity, other specified; Y92.89 Other specified places as the place of occurrence of the external cause; Y99.8 Other external cause status
CPT/HCPCS: 96365; 96375; 99284; 82550; 80048; 85025; 87086 ×2; 87186; 81001; 36415; 73522; 96361 ×2; 82948 ×7; 72148; 97161; 97116; G0378 ×54; J7042; J1885; J0696; J1815 ×4